=== PATIENT | female | born 1955 | race Caucasian/White ===

== ENCOUNTER → 2016-06-13 | Outpatient (CLI) | payer MEDICARE ==
[~2016-06-13] MED LIST: BARIUM SUSPENSION 2.1% (VANILLA SILQ) 450 ML PO ONE; CATHETER FLUSH 10 ML SYR IV PRN; IOHEXOL 350 MG/ML 100 ML (OMNIPAQUE 350) VIAL IV ONE; NS 100 ML (IVPB) BAG IV ONE
--- NOTE | 2016-06-13 11:03 | Diagnostic Imaging Report ---
INDICATION: Left lower quadrant pain. CT of the abdomen and pelvis obtained with IV contrast bolus. FINDINGS: Visualized portion of the lung bases show no infiltrates. There are a couple of small pulmonary nodules in left lower lobe, largest measured about 5 mm. There is a small nodule in the right lower lobe as well measuring about 4 mm. There is no pleural fluid. There is no free intraperitoneal air. The liver and gallbladder appear unremarkable. There is splenomegaly. The spleen measures about 17 cm in greatest axial diameter and about 23 cm in length. The pancreas and adrenals and kidneys are unremarkable. There is no retroperitoneal adenopathy. Aorta is tortuous as are the iliac vessels without aneurysmal disease. There is no sign of bowel obstruction. There are diverticuli in the sigmoid and descending colon, without acute diverticulitis. IMPRESSION: There is marked splenomegaly of uncertain etiology. There are uncomplicated colonic diverticuli. There is no overt adenopathy. There are small nodules in both lung bases as described above. This may represent granulomata or small neoplasms. Suggest full chest CT for further evaluation and followup as clinically warranted. Dictated by: Dictated on workstation # [id number]
--- NOTE | 2016-06-14 10:40 | Diagnostic Imaging Report ---
Bilateral screening mammogram The current study was also evaluated with a Computer Aided Detection (CAD) system. INDICATION: Screening. No current complaints stated on the questionnaire. COMPARISON: 05/30/15. FINDINGS: Scattered fibroglandular densities are seen. There is a 6 mm oval asymmetry along the central aspect of the right MLO view with no definitive correlate on the CC projection. The left breast demonstrates no definite change. IMPRESSION: Focal compression view and ultrasound evaluation for central right MLO view asymmetry is recommended. ACR BI-RADS Category 0: Incomplete. (Needs additional imaging evaluation). Result letter will be mailed to the patient. Note: At least 10% of breast cancer is not imaged by mammography. Dictated by: Dictated on workstation # [id number]
== END ==
LOC: RAD 10:00
PROVIDERS: ATTEND Internal Medicine Hematology & Oncology
DX: Z12.31 Encounter for screening mammogram for malignant neoplasm of breast (principal)
CPT/HCPCS: 74177; 77067

== ENCOUNTER → 2016-07-23 | Outpatient (CLI) | payer MEDICARE ==
--- NOTE | 2016-07-23 09:59 | Diagnostic Imaging Report ---
EXAMINATION: Right breast ultrasound. INDICATION: Focal asymmetry in the central upper outer aspect of the right breast. FINDINGS: At the 10:30 o'clock position 3 cm from the nipple, there is a simple cyst measuring 3 mm. This is slightly smaller compared to the findings seen on mammography and it is uncertain if this is a matching abnormality; however, the rest of the breast is scanned with no other lesion seen in the retroareolar or the 4 quadrants of the right breast. IMPRESSION: There is a 3 mm simple cyst in the upper outer quadrant which may correlate with the abnormality on mammography although the size of the mammographic abnormality appears slightly larger. A 6 month right breast mammogram is recommended to ensure stability. ACR BI-RADS Category 3: Probably benign findings. Dictated by: Dictated on workstation # [id number]
--- NOTE | 2016-07-23 14:14 | Diagnostic Imaging Report ---
Right breast diagnostic mammogram. The current study was also evaluated with a Computer Aided Detection (CAD) system. INDICATION: Asymmetry along the central aspect of the right breast. FINDINGS: There is a 6 mm asymmetry along the lateral central aspect of the right breast with focal compression views demonstrating persistent 6 mm focal asymmetry on CC and lateral projections with a probable underlying nodule or cyst. IMPRESSION: Persistent focal asymmetry in the central slightly lateral upper aspect of the right breast. Ultrasound evaluation pending. ACR BI-RADS Category 0: Incomplete. (Needs additional imaging evaluation). Result letter will be mailed to the patient. Note: At least 10% of breast cancer is not imaged by mammography. Dictated by: Dictated on workstation # [id number]
--- NOTE | 2016-07-24 12:51 | Diagnostic Imaging Report ---
EXAMINATION: PET-CT TECHNIQUE: Serum glucose level at the time of the study is: 136 mg/dL. 12.8 mCi of FDG was administered intravenously followed by obtaining PET images with corresponding noncontrast CT scan images. The CT scan was performed for anatomic correlation and attenuation correction and was not performed according to the diagnostic protocol of the areas covered. The scan was performed from the head to mid thighs. INDICATION: Splenomegaly. FINDINGS: There is symmetric uptake in the brain. In the neck, there are areas of mild to moderate FDG uptake in the oropharyngeal tonsils and lingual tonsils with symmetric appearance on correlating CT scan of the soft tissues in favor of physiologic activity. There is also increased FDG uptake in the left paraspinal muscles in the upper to mid neck with symmetric appearance on the correlating CT scan, likely related to muscle contraction with no definite underlying lesion. In the chest, there is physiologic activity in the heart with no suspicious hypermetabolic mass or lymph node seen. The spleen is markedly enlarged with no significant hypermetabolism. There is no hypermetabolic enlarged lymph nodes in the abdomen or pelvis seen. The bone marrow demonstrate nonspecific heterogenous activity with no focal intensely hypermetabolic mass. IMPRESSION: There is markedly enlarged spleen with no hypermetabolic activity noted. No suspicious hypermetabolic mass is seen otherwise. Mild to moderate hypermetabolism around the oropharynx is not associated with a convincing underlying mass or asymmetry on the localizer CT and is favored to be physiologic or inflammatory. Dictated by: Dictated on workstation # [id number]
== END ==
LOC: RAD 08:14
PROVIDERS: ATTEND Internal Medicine Hematology & Oncology
DX: N60.01 Solitary cyst of right breast (principal); R16.1 Splenomegaly, not elsewhere classified
CPT/HCPCS: 76641

== ENCOUNTER 2016-07-25 11:14 | Outpatient (RCR) | payer MEDICARE ==
[2016-05-30 15:50] LABS: BASOPHILS % (AUTO) 0 % (0-10); EOSINOPHILS # (AUTO) 0.1 10^3/uL (0.0-0.3); EOSINOPHILS % (AUTO) 2 % (0-10); LYMPHOCYTES # (AUTO) 0.9 X 10^3 (1.0-4.0); LYMPHOCYTES % (AUTO) 15 % (12-44); MEAN CORPUSCULAR HEMOGLOBIN 23 PG (25-34); MEAN CORPUSCULAR HGB CONC 34 G/DL (32-36); MEAN CORPUSCULAR VOLUME 69 FL (80-99); MEAN PLATELET VOLUME 10.1 FL (7.4-10.4); MONOCYTES # (AUTO) 0.6 X 10^3 (0.0-1.0); MONOCYTES % (AUTO) 10 % (0-12); NEUTROPHILS # (AUTO) 4.3 X 10^3 (1.8-7.8); NEUTROPHILS % (AUTO) 73 % (42-75); PLATELET COUNT 119 10^3/uL (130-400); RED BLOOD COUNT 5.63 10^6/uL (4.35-5.85); RED CELL DISTRIBUTION WIDTH 16.6 % (10.0-14.5); WHITE BLOOD COUNT 5.8 10^3/uL (4.3-11.0)
[2016-05-30 16:32] LABS: ALANINE AMINOTRANSFERASE 61 U/L (0-55); ALBUMIN 4.3 G/DL (3.2-4.5); ANION GAP 9 MMOL/L (5-14); ASPARTATE AMINO TRANSFERASE 20 U/L (5-34); BILIRUBIN,TOTAL 0.5 MG/DL (0.1-1.0); BLOOD UREA NITROGEN 19 MG/DL (7-18); BUN/CREATININE RATIO 23; CALCIUM 9.1 MG/DL (8.5-10.1); CARBON DIOXIDE 28 MMOL/L (21-32); CHLORIDE 105 MMOL/L (98-107); CREATININE SERUM 0.83 MG/DL (0.60-1.30); GFR ESTIMATED > 60; GLUCOSE 122 MG/DL (70-105); POTASSIUM 4.3 MMOL/L (3.6-5.0); SODIUM 142 MMOL/L (135-145); TOTAL PROTEIN 6.9 G/DL (6.4-8.2)
== END 2016-08-28 | disposition home or self-care (01) ==
LOC: PAR 11:14
PROVIDERS: ATTEND Internal Medicine Hematology & Oncology
DX: D50.9 Iron deficiency anemia, unspecified (principal); K21.9 Gastro-esophageal reflux disease without esophagitis; I10 Essential (primary) hypertension; M12.9 Arthropathy, unspecified; E66.01 Morbid (severe) obesity due to excess calories; Z68.42 Body mass index [BMI] 45.0-49.9, adult
CPT/HCPCS: 36415; 80053; 82728; 83540; 85025; 99213

== ENCOUNTER → 2017-01-06 | Outpatient (CLI) | payer MEDICARE ==
--- NOTE | 2017-01-06 10:36 | Diagnostic Imaging Report ---
INDICATION: Followup focal asymmetry in the central slightly lateral aspect of the right breast. EXAMINATION: Right breast diagnostic mammogram with tomography. CAD is utilized. The current study was also evaluated with a Computer Aided Detection (CAD) system. COMPARISON: 07/23/16 FINDINGS: Again seen is an asymmetry along the central slightly lateral aspect of the right breast with no significant change from the prior exams. Previously ultrasound was done with no suspicious abnormality seen. IMPRESSION: Focal asymmetry along the central-lateral aspect of the right breast is again noted without significant change. This may relate to summation artifact of parenchyma. Another followup when the patient is due for her bilateral mammogram in June 2017 is recommended to ensure no adverse development. BI-RADS 3. ACR BI-RADS Category 3: Probably benign findings. Result letter will be mailed to the patient. Note: At least 10% of breast cancer is not imaged by mammography. Dictated by: Dictated on workstation # [id number]
== END ==
LOC: RAD 09:36
PROVIDERS: ATTEND Internal Medicine Hematology & Oncology
DX: R92.8 Other abnormal and inconclusive findings on diagnostic imaging of breast (principal)

== ENCOUNTER 2017-01-23 10:39 | Outpatient (RCR) | payer MEDICARE ==
[2017-01-23 11:02] LABS: BASOPHILS % (AUTO) 0 % (0-10); EOSINOPHILS # (AUTO) 0.1 10^3/uL (0.0-0.3); EOSINOPHILS % (AUTO) 1 % (0-10); HEMATOCRIT 41 % (35-52); HEMOGLOBIN 13.7 G/DL (11.5-16.0); LYMPHOCYTES % (AUTO) 13 % (12-44); MEAN CORPUSCULAR HEMOGLOBIN 24 PG (25-34); MEAN CORPUSCULAR HGB CONC 33 G/DL (32-36); MEAN CORPUSCULAR VOLUME 71 FL (80-99); MEAN PLATELET VOLUME 9.7 FL (7.4-10.4); MONOCYTES # (AUTO) 0.8 X 10^3 (0.0-1.0); MONOCYTES % (AUTO) 10 % (0-12); NEUTROPHILS # (AUTO) 6.4 X 10^3 (1.8-7.8); NEUTROPHILS % (AUTO) 77 % (42-75); PLATELET COUNT 112 10^3/uL (130-400); RED BLOOD COUNT 5.81 10^6/uL (4.35-5.85); RED CELL DISTRIBUTION WIDTH 16.7 % (10.0-14.5); WHITE BLOOD COUNT 8.3 10^3/uL (4.3-11.0)
[2017-01-23 11:20] LABS: ALANINE AMINOTRANSFERASE 13 U/L (0-55); ALBUMIN 4.2 GM/DL (3.2-4.5); ALKALINE PHOSPHATASE 71 U/L (40-136); BILIRUBIN,TOTAL 0.6 MG/DL (0.1-1.0); BUN/CREATININE RATIO 29; CALCIUM 9.6 MG/DL (8.5-10.1); CARBON DIOXIDE 24 MMOL/L (21-32); CHLORIDE 105 MMOL/L (98-107); CREATININE SERUM 0.77 MG/DL (0.60-1.30); GFR ESTIMATED > 60; GLUCOSE 143 MG/DL (70-105); POTASSIUM 4.6 MMOL/L (3.6-5.0); SODIUM 139 MMOL/L (135-145); TOTAL PROTEIN 7.5 GM/DL (6.4-8.2)
== END 2017-04-23 | disposition home or self-care (01) ==
LOC: ONC 10:39
PROVIDERS: ATTEND Internal Medicine Hematology & Oncology
DX: D50.9 Iron deficiency anemia, unspecified (principal); K21.9 Gastro-esophageal reflux disease without esophagitis; I10 Essential (primary) hypertension; M12.9 Arthropathy, unspecified; E66.01 Morbid (severe) obesity due to excess calories; Z68.42 Body mass index [BMI] 45.0-49.9, adult; Z79.899 Other long term (current) drug therapy
CPT/HCPCS: 36415; 80053; 82728; 83540; 84443; 85025; 99213

== ENCOUNTER 2017-11-04 11:07 | Outpatient (RCR) | payer MEDICARE ==
[2017-11-04 11:26] LABS: BASOPHILS # (AUTO) 0.1 10^3/uL (0.0-0.1); BASOPHILS % (AUTO) 1 % (0-10); EOSINOPHILS # (AUTO) 0.1 10^3/uL (0.0-0.3); EOSINOPHILS % (AUTO) 1 % (0-10); HEMATOCRIT 36 % (35-52); LYMPHOCYTES # (AUTO) 1.4 X 10^3 (1.0-4.0); LYMPHOCYTES % (AUTO) 15 % (12-44); MEAN CORPUSCULAR HEMOGLOBIN 26 PG (25-34); MEAN CORPUSCULAR HGB CONC 33 G/DL (32-36); MEAN CORPUSCULAR VOLUME 78 FL (80-99); MEAN PLATELET VOLUME 9.5 FL (7.4-10.4); MONOCYTES # (AUTO) 0.8 X 10^3 (0.0-1.0); MONOCYTES % (AUTO) 9 % (0-12); NEUTROPHILS # (AUTO) 6.8 X 10^3 (1.8-7.8); NEUTROPHILS % (AUTO) 75 % (42-75); PLATELET COUNT 138 10^3/uL (130-400); RED BLOOD COUNT 4.64 10^6/uL (4.35-5.85); RED CELL DISTRIBUTION WIDTH 17.3 % (10.0-14.5); WHITE BLOOD COUNT 9.1 10^3/uL (4.3-11.0)
== END 2017-11-11 | disposition home or self-care (01) ==
LOC: ONC 11:07
PROVIDERS: ATTEND Internal Medicine Hematology & Oncology
DX: D50.9 Iron deficiency anemia, unspecified (principal); K21.9 Gastro-esophageal reflux disease without esophagitis; I10 Essential (primary) hypertension; M12.9 Arthropathy, unspecified; E66.01 Morbid (severe) obesity due to excess calories; Z68.42 Body mass index [BMI] 45.0-49.9, adult; Z79.899 Other long term (current) drug therapy
CPT/HCPCS: 36415; 82728; 83540; 85025; 99213

== ENCOUNTER → 2017-11-12 | Outpatient (CLI) | payer MEDICARE ==
--- NOTE | 2017-11-12 12:36 | Diagnostic Imaging Report ---
INDICATION: Six-month followup right breast density. COMPARISON: 06/13/2016 and 05/30/2015. TECHNIQUE: 2D and 3D bilateral diagnostic mammography was performed with CAD. FINDINGS: Scattered fibroglandular densities are identified bilaterally. The area of asymmetry in the upper-outer right breast is stable and most likely represents fibroglandular tissue. No mass or malignant appearing microcalcifications are seen. The axillae are unremarkable. IMPRESSION: No mammographic features suspicious for malignancy are identified. The patient may return to routine annual screening mammography. ACR BI-RADS Category 1: Negative. Result letter will be mailed to the patient. Note: At least 10% of breast cancer is not imaged by mammography. Dictated by: Dictated on workstation # [id number]
== END ==
LOC: RAD 12:06
PROVIDERS: ATTEND Internal Medicine Hematology & Oncology
DX: R92.8 Other abnormal and inconclusive findings on diagnostic imaging of breast (principal)
CPT/HCPCS: 77066

== ENCOUNTER 2018-09-17 05:38 | Outpatient (CLI) | payer MEDICARE ==
[~2018-09-17] VITALS: Ht 167.6 cm; Wt 115.7 kg
[2018-09-17 14:05] VITALS: BP 131/68
[2018-09-17 14:31] LABS: BASOPHILS % (AUTO) 0 % (0-10); EOSINOPHILS # (AUTO) 0.1 10^3/uL (0.0-0.3); EOSINOPHILS % (AUTO) 1 % (0-10); HEMATOCRIT 40 % (35-52); HEMOGLOBIN 13.2 G/DL (11.5-16.0); LYMPHOCYTES # (AUTO) 0.6 X 10^3 (1.0-4.0); LYMPHOCYTES % (AUTO) 7 % (12-44); MEAN CORPUSCULAR HEMOGLOBIN 25 PG (25-34); MEAN CORPUSCULAR HGB CONC 33 G/DL (32-36); MEAN CORPUSCULAR VOLUME 75 FL (80-99); MEAN PLATELET VOLUME 9.3 FL (7.4-10.4); MONOCYTES # (AUTO) 0.8 X 10^3 (0.0-1.0); MONOCYTES % (AUTO) 9 % (0-12); NEUTROPHILS # (AUTO) 7.6 X 10^3 (1.8-7.8); NEUTROPHILS % (AUTO) 84 % (42-75); PLATELET COUNT 147 10^3/uL (130-400); RED CELL DISTRIBUTION WIDTH 18.4 % (10.0-14.5); WHITE BLOOD COUNT 9.1 10^3/uL (4.3-11.0)
[2018-09-17 14:55] LABS: ANISOCYTOSIS SLIGHT; BAND NEUTROPHILS 2 %; BASOPHILS % (MANUAL) 0 %; EOSINOPHILS % (MANUAL) 2 %; LYMPHOCYTES % (MANUAL) 6 %; MICROCYTOSIS SLIGHT; MONOCYTES % (MANUAL) 7 %; NEUTROPHILS % (MANUAL) 83 %
[2018-09-21] MEDS ORDERED: GINK120C PO (11:34)
[2018-09-21] MEDS ORDERED: FERR-84 PO (11:34)
[2018-09-21] MEDS ORDERED: MV-M1TAB57 PO (11:34)
[2018-09-21] MEDS ORDERED: OMEP10SU2 PO (11:34)
[2018-09-21] MEDS ORDERED: PUMP300C PO (11:34)
[2018-09-21] MEDS ORDERED: RT-ALBUINH INH (11:34)
[2018-09-21] MEDS ORDERED: CARI350T PO (11:34)
[2018-09-21] MEDS ORDERED: MELA1TAB20 PO (11:34)
[2018-09-21] MEDS ORDERED: FISH1CAP15 PO (11:34)
[2018-09-21] MEDS ORDERED: OXYC1TAB87 PO (11:34)
[2018-09-21] MEDS ORDERED: SERT100T PO (11:34)
[2018-09-21] MEDS ORDERED: CHOL100045 PO (11:34)
[2018-09-21] MEDS ORDERED: CLOP75TA69 PO (11:34)
[2018-09-21] MEDS ORDERED: LISI-552 PO (11:34)
== END 2018-09-17 14:20 | disposition home or self-care (01) ==
LOC: PREOP 05:38
PROVIDERS: ATTEND Surgery
DX: Z01.812 Encounter for preprocedural laboratory examination (principal); Z11.2 Encounter for screening for other bacterial diseases; K82.4 Cholesterolosis of gallbladder
CPT/HCPCS: 36415; 85007; 85027; 87081

== ENCOUNTER 2018-09-23 06:45 | Day surgery (SDC) | payer MEDICARE ==
[~2018-09-23] VITALS: Ht 167.6 cm; Wt 115.7 kg
[2018-09-23] VITALS (11 sets, daily range): BP systolic 133–159; BP diastolic 63–86
[~2018-09-23 06:45] MED LIST changes: -BARIUM SUSPENSION 2.1% (VANILLA SILQ) 450 ML PO ONE; +CARI350T PO; -CATHETER FLUSH 10 ML SYR IV PRN; +CHOL100045 PO; +CLOP75TA69 PO; +FERR-84 PO; +FISH1CAP15 PO; +GINK120C PO; -IOHEXOL 350 MG/ML 100 ML (OMNIPAQUE 350) VIAL IV ONE; +LISI-552 PO; +MELA1TAB20 PO; +MV-M1TAB57 PO; -NS 100 ML (IVPB) BAG IV ONE; +OMEP10SU2 PO; +OXYC1TAB87 PO; +PUMP300C PO; +RT-ALBUINH INH; +SERT100T PO
[2018-09-23] MEDS ORDERED: ONDANSETRON 4 MG/2 ML (SDV) Z0FRAN ONE (06:56)
[2018-09-23] MEDS ORDERED: fentaNYL INJECTION 100 MCG/2 ML AMP ONE (06:56)
[2018-09-23] MEDS ORDERED: proPOfol 200 MG/20 ML (DIPRIVAN) VIAL IV ONE (06:56)
[2018-09-23] MEDS ORDERED: DEXAMETHASONE 10 MG/ML (DECADRON) 1 ML VIAL ONE (06:56)
[2018-09-23] MEDS ORDERED: ROCURONIUM 10 MG/ML 5 ML SYRINGE IV ONE (06:56)
[2018-09-23] MEDS ORDERED: LIDOCAINE PF 2% 5 ML (XYLOCAINE) VIAL ONE (06:56)
[2018-09-23] MEDS ORDERED: MIDAZOLAM 2 MG/2 ML (VERSED) VIAL ONE (06:56)
[2018-09-23] MEDS ORDERED: BUPIVACAINE 0.5% 30 ML (SENSORCAINE) VIAL ONE (07:18)
[2018-09-23] MEDS ORDERED: LIDOCAINE/EPI 1%-1:100,000 (XYLOCAINE) 20ML ONE (07:18)
[2018-09-23] MEDS ORDERED: ceFAZolin 2 GM/50 ML NS 50 ML IV ONE (07:30)
[2018-09-23] MEDS ORDERED: CATHETER FLUSH 10 ML SYR IV PRN (07:30)
[2018-09-23] MEDS: LACTATED RINGERS 1,000 ML IV PRN ×2 (07:38→08:49)
[2018-09-23] MEDS ORDERED: FLUT9.9S16 NS (07:47)
--- NOTE | 2018-09-23 08:31 | Progress Note-Pre Operative ---
Pre-Operative Progress Note H&P Reviewed The H&P was reviewed, patient examined and no changes noted. Time Seen by Provider: 08:16 Date H&P Reviewed: Sep 23, 2018 Time H&P Reviewed: 08:17 Pre-Operative Diagnosis: Cholelithiasis/Cholecystitis RON BOLAND DO Sep 23, 2018 08:31
[2018-09-23] MEDS ORDERED: SEVOFLURANE (ULTANE) 15 ML INHAL SOLN ONE (08:44)
[2018-09-23] MEDS ORDERED: GLYCOPYRROLATE 0.2 MG/ML (ROBINUL) 2 ML VIAL ONE ×2 (08:44→09:06)
[2018-09-23] MEDS ORDERED: HYDROmorphone 2 MG/ML VIAL (DILAUDID) ONE (09:03)
[2018-09-23] MEDS ORDERED: NEOSTIGMINE 1 MG/ML 5 ML SYRINGE ONE (09:06)
--- NOTE | 2018-09-23 09:21 | Progress Note-Post Operative ---
Post-Operative Progess Note Surgeon (s)/Outside Cutter Hand (s) Surgeon RON BOLAND DO Outside Cutter Hand: Margaux Pre-Operative Diagnosis Cholelithiasis/Cholecystitis Post-Operative Diagnosis same pending path Procedure & Operative Findings Date of Procedure 09/23/18 Procedure Performed/Findings Lap wesly with IOC Anesthesia Type GET Estimated Blood Loss Estimated blood loss (mL): scant Specimens/Packing Specimens Removed GB and contents RON BOLAND DO Sep 23, 2018 09:21
--- NOTE | 2018-09-23 09:24 | Discharge Inst-Surgical ---
Discharge Inst-Surgical Depart Medication/Instructions New, Converted or Re-Newed RX: Other (pt has home meds) Patient Instructions Follow up Appt: Make appointment for 1 week. [phone] Instructions: No lifting greater than 20 pounds. No strenuous activity. May shower in 24 hours, no tub bath or soaking. Use incentive spirometer at home as directed. No Smoking Skin/Wound Care: May remove bandages in am. You need to leave the Dermabond on incision it will fall off on it's own. Symptoms to Report: Appetite Changes, Extremity Discoloration, Numbness/Tingling, Swelling Increased, Bleeding Excessive, Eyesight Changes, Pain Increased, Urine Color Change, Constipation(Persistent), Fever over 101 degree F, Pain/Pressure in chest, Urinating Difficulty, Cough Up/Vomit Blood, Heart Beat Irreg/Pounding, Pain/Pressure in jaw, Cramps in feet or legs, Lightheadedness, Pain/Pressure in shoulder, Diarrhea(Persistent), Memory Changes Suddenly, Questions/Concerns, Weight gain consecutive days, Dizziness/Fainting, Nausea/Vomiting, Shortness of Breath, Weight gain over 2 pounds If questions or concerns contact your physician Or seek help at emergency department. Activity Activity as Tolerated: Yes Activity Instructions: Avoid Stress to Incision Driving Instructions: No Driving/Refer to Diet Discharge Diet: Avoid Fatty Foods, Low Fat/Low Cholesterol Diet After 24 Hours: Clear Liquid if Nauseous If Any Problems/Questions/Issu: Contact Your Physician, Go to Emergency Room Skin/Wound Care Infection Signs and Symptoms: Increased Redness, Foul Odor of Wound, Increased Drainage, Skin Itchy or Has a Rash, Increased Swelling, Temperature Above 101 F Wound Care Comment: Heating pad to shoulder or neck tonight for pain Bathing Instructions: Shower Stitches/Sudheer/Dermabond Dis: Dermabond Ice Pack: Ice On and Off Site (as needed for pain at incision sites) RON BOLAND DO Sep 23, 2018 09:23
[2018-09-23] MEDS ORDERED: ONDANSETRON 4 MG/2 ML (SDV) Z0FRAN IVP PRN (09:45)
[2018-09-23] MEDS ORDERED: HYDROmorphone 2 MG/ML VIAL (DILAUDID) IV ONE (09:45)
--- NOTE | 2018-09-23 10:30 | NUR ---
RECEIVED PATIENT FROM PACU. O2 SAT 79% ON ROOM AIR AND PATIENT SHORT OF BREATH. APPLIED NON-REBREATHER. O2 SAT WENT BACK TO 96-99%. PATIENT WANTING HER C-PAP APPLIED. C-PAP APPLIED AT 1035. O2 SAT 92-96% WITH C-PAP.
--- NOTE | 2018-09-23 11:35 | Diagnostic Imaging Report ---
Fluoroscopy Indication: Abdominal pain. Fluoroscopic assistance was provided for Dr. Oliva during his laparoscopic cholecystectomy procedure. 14 seconds of fluoroscopy time was utilized. 72 spot films of the right upper quadrant were received. There are laparoscopic devices in place. The common bile duct has been opacified via a cystic duct catheter. The common duct is dilated and there does seem to be a roughly 1 cm defect in the region of the junction of the cystic duct and the common bile duct. There is contrast extending into the small bowel. Impression: Fluoroscopic assistance was provided for Dr. Oliva. Dictated by: Dictated on workstation # [id number]
--- NOTE | 2018-09-23 12:45 | NUR ---
PATIENT MORE ALERT. O2 SAT 97% ON ROOM AIR. PATIENT UP TO THE BATHROOM. DISCHARGE INSTRUCTIONS WENT OVER WITH THE PATIENT AND HER .
--- NOTE | 2018-09-23 14:04 | Anesthesia-General Post-Op ---
General Patient Condition Mental Status/LOC: Same as Preop Cardiovascular: Satisfactory Nausea/Vomiting: Absent Respiratory: Satisfactory Pain: Controlled Complications: Absent Post Op Complications Complications None Follow Up Care/Instructions Patient Instructions None needed. Anesthesia/Patient Condition Patient Condition Patient is doing well, no complaints, stable vital signs, no apparent adverse anesthesia problems. No complications reported per nursing. ZAHRA LIMON CRNA Sep 23, 2018 14:04
--- NOTE | 2018-09-23 14:33 | OPERATIVE REPORT ---
DATE OF SERVICE: 09/23/2018 PREOPERATIVE DIAGNOSES: Cholelithiasis, cholecystitis. POSTOPERATIVE DIAGNOSES: Cholelithiasis, cholecystitis, pending pathology. PROCEDURE: Laparoscopic cholecystectomy, intraoperative cholangiogram. SURGEON: Mor Oliva DO BOAT DECKHAND: Serafin Damico DO ANESTHESIA: General endotracheal tube. SPECIMEN: Gallbladder and contents. BLOOD LOSS: Scant. FLUIDS: Per anesthesia. POSTOPERATIVE CONDITION: Stable. INDICATION FOR PROCEDURE: The patient is a 63-year-old female who has been having pain in right upper quadrant radiating straight to her back and an ultrasound showed a stone possible polyp and dilated common bile duct. FINDINGS: The patient had adhesions to gallbladder, which is indicative of previous gallbladder attacks and she had a very dilated common bile duct, but no stones seen in the duct. PROCEDURE NOTE: After informed consent was obtained, the patient was brought to the operating room, placed on the table in supine position. She was sterilely prepped and draped in normal fashion. Local lidocaine was used to infiltrate the skin above the umbilicus. Made an incision with #11 blade, carried down through the skin into subcutaneous tissue, deepened down through subcutaneous tissue with Bovie electrocautery down to the fascia. Fascia was incised with Bovie electrocautery and bluntly entered the abdomen, swept a finger around, placed 0 Vicryl [id number] suture and placed an 11 mm trocar port under direct visualization. Created pneumoperitoneum and then placed 3 more ports in a normal fashion using local lidocaine, 11 blade for stab incision and Versed system, all done under direct visualization, one subxiphoid and 2 in the right upper quadrant. The patient then placed slightly reverse Trendelenburg. Able to visualize the gallbladder removed and grasped at the fundus. There was lot of adhesions to it, picture taken and then carefully started taking down the adhesions with Bovie electrocautery as well as blunt dissection. Once these were able to completely take down, then able to grasp down to Christin's pouch and pulled in the inferolateral direction, started dissecting out cystic duct, able to get around the cystic duct and cystic artery and placed 1 clip distally in the cystic duct and one distally and 2 proximally in the cystic artery. Cut the cystic duct mcfp through Metzenbaum scissors. Placed a cholangiogram catheter, shot a cholangiogram. Good spillage of dye down the common bile duct into the small intestine as well as up into common hepatic. It did not go all the way up because of the duct being just so large out of dye, but could see that was going up into common hepatic and at this point then removed the cholangiogram catheter, placed 2 clips proximally on the cystic duct and cut the cystic duct and cystic artery with Metzenbaum scissors. Removed the gallbladder from the bed of the liver with L-hook cautery, which was completely removed, placed a bag in the abdomen, placed the gallbladder in the bag and removed this through a supraumbilical incision. Placed the port back in the abdomen, copiously irrigated with normal saline, suctioned out. Obtained hemostasis in the bed of the liver with L-hook cautery. No bleeding at the end of the case. At this point, placed the patient supine. Suctioned out all the fluid and then suctioned out the pneumoperitoneum as well as allowed to escape and removed all ports under direct visualization. Closed supraumbilical incision, closing the fascia with 0 Vicryl suture previously placed. Copiously irrigated all incisions with normal saline. Next, closed the 3 small 5 mm incisions with a single interrupted 4-0 undyed Monocryl subcuticular stitch. Closed the supraumbilical incision with 3 interrupted 4-0 undyed Monocryl subcuticular stitches. Area was cleaned and dried and Dermabond and Band-Aids placed. The patient is still in the operating room as I dictated, she is stable, she will be transferred to recovery room. Job ID: [id number] DocumentID: [id number] Dictated Date: 09/23/2018 09:21:00 Service Delivery Consultant Date: 09/23/2018 14:32:33 Dictated By: MOR OLIVA DO
== END 2018-09-23 13:00 | disposition home or self-care (01) ==
LOC: SDC 06:45
PROVIDERS: ATTEND Surgery
DX: K80.10 Calculus of gallbladder with chronic cholecystitis without obstruction (principal); K82.8 Other specified diseases of gallbladder; D69.6 Thrombocytopenia, unspecified; G47.33 Obstructive sleep apnea (adult) (pediatric); Z96.653 Presence of artificial knee joint, bilateral; Z87.891 Personal history of nicotine dependence; I10 Essential (primary) hypertension; J45.909 Unspecified asthma, uncomplicated; Z86.73 Personal history of transient ischemic attack (TIA), and cerebral infarction without residual deficits; G62.9 Polyneuropathy, unspecified; F32.9 Major depressive disorder, single episode, unspecified; F41.9 Anxiety disorder, unspecified; K21.9 Gastro-esophageal reflux disease without esophagitis; E66.9 Obesity, unspecified; N32.81 Overactive bladder; Z68.41 Body mass index [BMI] 40.0-44.9, adult; Z79.899 Other long term (current) drug therapy; Z79.02 Long term (current) use of antithrombotics/antiplatelets
CPT/HCPCS: 94664

== ENCOUNTER → 2018-12-15 | Outpatient (CLI) | payer MEDICARE ==
[~2018-12-15] MED LIST changes: +FLUT9.9S16 NS
--- NOTE | 2018-12-15 13:14 | Diagnostic Imaging Report ---
INDICATION: Routine screening. COMPARISON: 11/12/2017 and 06/13/2016. TECHNIQUE: 2D and 3D bilateral screening mammography was performed with CAD. FINDINGS: Scattered fibroglandular densities are identified bilaterally. The overall parenchymal pattern is stable. No dominant mass or malignant appearing microcalcifications are seen. The axillae are unremarkable. IMPRESSION: No mammographic features suspicious for malignancy are identified. ACR BI-RADS Category 1: Negative. Result letter will be mailed to the patient. Note: At least 10% of breast cancer is not imaged by mammography. Dictated by: Dictated on workstation # [id number]
== END ==
LOC: RAD 09:55
PROVIDERS: ATTEND Family Medicine
DX: Z12.31 Encounter for screening mammogram for malignant neoplasm of breast (principal)
CPT/HCPCS: 77067

== ENCOUNTER 2018-12-31 12:00 | Outpatient (CLI) | payer MEDICARE ==
[~2018-12-31] VITALS: Ht 167.7 cm; Wt 116.8 kg
[~2018-12-31 12:00] MED LIST changes: +CHOL378P PO
== END 2018-12-31 12:59 | disposition home or self-care (01) ==
LOC: PREOP 12:00
PROVIDERS: ATTEND Surgery
DX: Z01.818 Encounter for other preprocedural examination (principal)

== ENCOUNTER 2019-01-04 07:34 | Day surgery (SDC) | payer MEDICARE ==
[~2019-01-04] VITALS: Ht 172.7 cm; Wt 116.8 kg
[2019-01-04] MEDS ORDERED: LACTATED RINGERS 1,000 ML IV ONE (07:39)
[2019-01-04 07:50] VITALS: BP 111/68
[2019-01-04] MEDS ORDERED: LACTATED RINGERS 1,000 ML IV STA (07:55)
[2019-01-04] MEDS ORDERED: HURRICAINE EXT TUBE (BENZOCAINE) XX PRN (08:00)
--- NOTE | 2019-01-04 08:17 | Progress Note-Pre Operative ---
Pre-Operative Progress Note H&P Reviewed The H&P was reviewed, patient examined and no changes noted. Time Seen by Provider: 08:10 Date H&P Reviewed: Jan 04, 2019 Time H&P Reviewed: 08:11 Pre-Operative Diagnosis: nausea/vomiting, diarrhea RON BOLAND DO Jan 04, 2019 08:17
[2019-01-04] MEDS ORDERED: PROPOFOL INJECTION 50 ML IV ONE ×2 (09:03→09:23)
[2019-01-04] MEDS ORDERED: MIDAZOLAM 2 MG/2 ML (VERSED) VIAL ONE (09:04)
[2019-01-04 09:50] VITALS: BP 102/62
[2019-01-04 09:55] VITALS: BP 91/54
[2019-01-04 10:00] VITALS: BP 93/51
--- NOTE | 2019-01-04 10:00 | Progress Note-Post Operative ---
Post-Operative Progess Note Surgeon (s)/Stone Rougher (s) Surgeon RON BOLAND DO Stone Rougher: none Pre-Operative Diagnosis nausea/vomiting, diarrhea Post-Operative Diagnosis Gastritis Gastric Polyps Hiatal Hernia Diverticula Int hemorrhoids Procedure & Operative Findings Date of Procedure 01/04/19 Procedure Performed/Findings EGD with bx colon Anesthesia Type IV sedation by ARABIC TRANSLATOR Estimated Blood Loss Estimated blood loss (mL): scant Specimens/Packing Specimens Removed antral bx body of stomach bx GE jxn bx RON BOLAND DO Jan 04, 2019 10:00
--- NOTE | 2019-01-04 10:01 | Endoscopy Discharge Instruct ---
Endo Procedure/Findings Findings 1.: Gastritis 2.: Hiatal Hernia 3.: Diverticulosis 4.: Internal Hemorrhoids Discharge Instructions - Activity: You might feel a little sleepy until tomorrow. This is due to the medicine you received to relax you. Until tomorrow, you should: NOT drive a car, operate machinery or power tools. NOT drink any alcoholic beverages. NOT make any important decisions or sign importortant papers. Do not return to work until tomorrow, unless otherwise instructed. Resume previous activities tomorrow. Diet: Start by taking liquids. If you tolerate liquids, advance to solid food. make appointment for one week 1.: Colonscopy in 10 years, EGD in 1 year Notify Physician - If you experience excessive bleeding, unusual abdominal pain, fever, or chest pain, contact your doctor immediately. RON BOLAND DO Jan 04, 2019 10:01
[2019-01-04 10:10] VITALS: BP 93/51
--- NOTE | 2019-01-04 10:11 | Anesthesia-General Post-Op ---
MAC Patient Condition Mental Status/LOC: Same as Preop Cardiovascular: Satisfactory Nausea/Vomiting: Absent Respiratory: Satisfactory Pain: Controlled Complications: Absent Post Op Complications Complications None Follow Up Care/Instructions Patient Instructions None needed. Anesthesiology Discharge Order Discharge Order Patient is doing well, no complaints, stable vital signs, no apparent adverse anesthesia problems. No complications reported per nursing. SANKET WEINER CRNA Jan 04, 2019 10:11
[2019-01-04 10:50] VITALS: BP 105/62
--- NOTE | 2019-01-05 02:32 | OPERATIVE REPORT ---
DATE OF SERVICE: 01/04/2019 PREOPERATIVE DIAGNOSES: 1. Nausea. 2. Diarrhea. POSTOPERATIVE DIAGNOSES: 1. Gastritis. 2. Gastric polyps. 3. Hiatal hernia. 4. Diverticula. 5. Internal hemorrhoids. PROCEDURES: 1. EGD with biopsy. 2. Colonoscopy. SURGEON: Mor Oliva DO BLOOD BANK TECHNOLOGIST: None. ANESTHESIA: IV sedation by the DUPLICATING MACHINE MECHANIC. SPECIMEN: One biopsy from the antrum, one biopsy of body of stomach, one biopsy of the GE junction. BLOOD LOSS: Scant. FLUIDS: Per anesthesia. POSTOPERATIVE CONDITION: Stable. INDICATION FOR PROCEDURE: The patient is a 63-year-old female who has been having some nausea and she also had some diarrhea, needed an EGD and colonoscopy for workup. She cannot remember the last time she had a colonoscopy. FINDINGS: The patient had some gastritis and some gastric polyps, and she also had hiatal hernia. In the colon she had some diverticula and some internal hemorrhoids. No other obvious pathology. PROCEDURE NOTE: After informed consent was obtained, the patient was brought to the endoscopy suite and placed in the left lateral decubitus position. She was administered IV sedation by the DUPLICATING MACHINE MECHANIC who then monitored her vitals the entire time, heart rate, blood pressure and pulse ox and started with the EGD, placed the scope down the mouth through the esophagus into the stomach. Upon entering the stomach, noted some gastritis, pushed into the duodenum. Duodenum looked fine. Pulled the scope back and did a biopsy of the antrum and then did a biopsy the body of stomach, saw some gastric polyps, took a picture of these and then retroflexed the scope, saw a small hiatal hernia. Then pulled the scope up into the GE junction, did a biopsy of the GE junction, then pushed the scope back in, suctioned the air out and then pulled the scope up the esophagus, looked like there was some larger vein seen in the esophagus, but I am not really sure, this would be varices. Pulled the scope out, the patient tolerated the procedure. Then changed gloves, changed the camera, and went down below, started the colonoscopy. Pushed all the way into about 150 cm, able to get all the way to cecum, took a picture of appendiceal orifice, noted the ileocecal valve and able to get into the terminal ileum and then slowly withdrew the scope insufflating the circumferential best looking at the cecum up the ascending colon to the hepatic flexure, then down the transverse colon, the splenic flexure, into the descending colon and through the descending colon and sigmoid, saw diverticula; continued down into the descending colon into the sigmoid colon, then into the rectum, retroflexed the rectal vault, saw some minimal internal hemorrhoids. No other obvious pathology. Scope was removed. The patient tolerated the procedure well and she was recovered in endoscopy suite. Job ID: [id number] DocumentID: [id number] Dictated Date: 01/04/2019 17:40:03 Arbitrator Date: 01/05/2019 01:33:44 Dictated By: OMR OLIVA DO
== END 2019-01-04 10:55 ==
LOC: ENDO 07:34
PROVIDERS: ATTEND Surgery
DX: K29.50 Unspecified chronic gastritis without bleeding (principal); K21.0 Gastro-esophageal reflux disease with esophagitis; K31.7 Polyp of stomach and duodenum; K44.9 Diaphragmatic hernia without obstruction or gangrene; K57.30 Diverticulosis of large intestine without perforation or abscess without bleeding; K64.8 Other hemorrhoids; D64.9 Anemia, unspecified; G47.33 Obstructive sleep apnea (adult) (pediatric); D69.6 Thrombocytopenia, unspecified; E66.01 Morbid (severe) obesity due to excess calories; Z68.39 Body mass index [BMI] 39.0-39.9, adult; Z79.899 Other long term (current) drug therapy; Z88.6 Allergy status to analgesic agent; Z88.8 Allergy status to other drugs, medicaments and biological substances; Z83.3 Family history of diabetes mellitus; Z82.49 Family history of ischemic heart disease and other diseases of the circulatory system; Z80.6 Family history of leukemia; Z96.653 Presence of artificial knee joint, bilateral; Z90.49 Acquired absence of other specified parts of digestive tract; Z87.891 Personal history of nicotine dependence; Z79.02 Long term (current) use of antithrombotics/antiplatelets; F32.9 Major depressive disorder, single episode, unspecified

== ENCOUNTER 2022-01-23 06:42 | Outpatient (CLI) | payer MEDICARE ==
[~2022-01-23] VITALS: Ht 172.7 cm; Wt 121.6 kg
[~2022-01-23 06:42] MED LIST changes: -CHOL378P PO; +CHOL378P12 PO; -LISI-552 PO; +LISI20TA26 PO
[2022-01-29] MEDS ORDERED: SOLI10TA2 PO (15:32)
[2022-01-29] MEDS ORDERED: FEXO-14 PO (15:32)
== END 2022-01-29 15:46 | disposition home or self-care (01) ==
LOC: PREOP 06:42
PROVIDERS: ATTEND Surgery
DX: Z01.818 Encounter for other preprocedural examination (principal)

== ENCOUNTER 2022-02-18 08:19 | Day surgery (SDC) | payer MEDICARE, OTHER ==
[~2022-02-18] VITALS: Ht 172.7 cm; Wt 121.6 kg
[~2022-02-18 08:19] MED LIST changes: +FEXO-14 PO; +HURRICAINE EXT TUBE (BENZOCAINE) XX PRN; +LACTATED RINGERS 1,000 ML IV STA; +SOLI10TA2 PO
[2022-02-18] MEDS ORDERED: LACTATED RINGERS 1,000 ML IV STA (08:29)
[2022-02-18] MEDS ORDERED: HURRICAINE EXT TUBE (BENZOCAINE) XX PRN (08:30)
[2022-02-18 08:53] VITALS: BP 132/70
--- NOTE | 2022-02-18 08:54 | Progress Note-Pre Operative ---
Pre-Operative Progress Note Date of Available H&P: Jan 22, 2022 Date H&P Reviewed: Feb 18, 2022 Time H&P Reviewed: 08:51 History & Physical: H&P Reviewed, Patient Examed, No changes noted Pre-Operative Diagnosis: Chronic Gastritis RON BOLAND DO Feb 18, 2022 08:54
[2022-02-18] MEDS ORDERED: proPOfol 200 MG/20 ML (DIPRIVAN) VIAL IV ONE (10:20)
--- NOTE | 2022-02-18 10:48 | Progress Note-Post Operative ---
Post-Operative Progess Note Surgeon (s)/Mailing Machine Assistant (s) Surgeon RON BOLAND DO Mailing Machine Assistant: none Pre-Operative Diagnosis Chronic Gastritis Post-Operative Diagnosis Gastritis Hiatal hernia Multiple gastric polyps Procedure & Operative Findings Date of Procedure 02/18/22 Procedure Performed/Findings EGD with bx EGD with hot bx removal of polyps PROCEDURE NOTE: After informed consent was obtained, the patient was brought to the endoscopy suite, placed in bed in left lateral decubitus position. She was administered IV sedation by the SPOT CHECKER who then monitored vitals the entire time, heart rate, blood pressure and pulse ox and the scope was inserted down the mouth through the esophagus into the stomach. On the way down, noted some mild esophagitis, took a picture, pushed into the stomach, pushed past the antrum into the duodenum. Duodenum looked good. Pulled back, noted gastritis and did a biopsy of the antrum,. Then retroflexed the scope, saw a small hiatal hernia and noted mulitple gastric polyps. Next, pulled the scope into the GE junction, took another picture of the hiatal hernia and then did a biopsy of the GE junction. Pushed the scope back into the stomach and elected to remove two polyps with hot biopsy. Suctioned all the air out of the stomach. At this point pulled the scope up the esophagus and out the mouth. The patient tolerated the procedure, and she recovered in endoscopy suite. Anesthesia Type IV sedation by SPOT CHECKER Estimated Blood Loss Estimated blood loss (mL): scant Specimens/Packing Specimens Removed antral bx GE jxn bx Gastric polyps x 2 RON BOLAND DO Feb 18, 2022 10:48
--- NOTE | 2022-02-18 10:49 | Endoscopy Discharge Instruct ---
Endo Procedure/Findings Findings 1.: Gastritis 2.: Hiatal Hernia 3.: Polyp (gastric) Discharge Instructions - Activity: You might feel a little sleepy until tomorrow. This is due to the medicine you received to relax you. Until tomorrow, you should: NOT drive a car, operate machinery or power tools. NOT drink any alcoholic beverages. NOT make any important decisions or sign importortant papers. Do not return to work until tomorrow, unless otherwise instructed. Resume previous activities tomorrow. Diet: Start by taking liquids. If you tolerate liquids, advance to solid food. 1.: EGD in 1 year Notify Physician - If you experience excessive bleeding, unusual abdominal pain, fever, or chest pain, contact your doctor immediately. RON BOLAND DO Feb 18, 2022 10:49
[2022-02-18 10:50] VITALS: BP 117/59
[2022-02-18 10:55] VITALS: BP 120/69
[2022-02-18 11:00] VITALS: BP 120/69
[2022-02-18 11:48] VITALS: BP 120/69
== END 2022-02-18 11:58 | disposition home or self-care (01) ==
LOC: ENDO 08:19
PROVIDERS: ATTEND Surgery
DX: K31.7 Polyp of stomach and duodenum (principal); K44.9 Diaphragmatic hernia without obstruction or gangrene; K31.89 Other diseases of stomach and duodenum; K29.50 Unspecified chronic gastritis without bleeding; Z79.01 Long term (current) use of anticoagulants; E66.01 Morbid (severe) obesity due to excess calories; Z68.41 Body mass index [BMI] 40.0-44.9, adult; Z87.891 Personal history of nicotine dependence